=== PATIENT | female | born 1980 | race Caucasian/White ===

== ENCOUNTER 2016-06-25 20:03 | Emergency (ER) | payer BC ==
[~2016-06-25] VITALS: Ht 172.7 cm; Wt 68.2 kg
[~2016-06-25 20:03] MED LIST: MOTRIN 800800 MG/TAB PO; PERCOCET 325 MG1 TA2 PO; PRENATAL1 TA7 PO
[2016-06-25 20:06] VITALS: BP 138/78; PULSE 98; TEMP 98.8
[2016-06-25] MEDS ORDERED: PYRIDIUM 100MG100 MG PO (20:53)
[2016-06-25] MEDS ORDERED: MACROBID 1100 MG/CAP PO (20:53)
[2016-06-25 20:54] LABS: PH 6 (5-8); SQUAMOUS EPITHELIAL None Seen /hpf; URINE APPEARANCE Hazy; URINE BACTERIA Rare /hpf; URINE BILIRUBIN Negative (NEGATIVE); URINE BLOOD 3+ (NEGATIVE); URINE COLOR Amber; URINE GLUCOSE Negative (NEGATIVE); URINE KETONE Negative (NEGATIVE); URINE RBC >50 /hpf; URINE UROBILINOGEN Negative (NEGATIVE)
[2016-06-25] MEDS ORDERED: DIFLUCAN150 MG PO (21:22)
== END 2016-06-25 21:31 | disposition home or self-care (01) ==
LOC: COL.ER 20:03
PROVIDERS: Emergency Medicine
DX: N39.0 Urinary tract infection, site not specified (principal); B96.20 Unspecified Escherichia coli [E. coli] as the cause of diseases classified elsewhere; R31.0 Gross hematuria

== ENCOUNTER → 2020-03-30 | Outpatient (CLI) | payer BC ==
[~2020-03-30] MED LIST changes: +DIFLUCAN150 MG PO; +MACROBID 1100 MG/CAP PO; +PYRIDIUM 100MG100 MG PO
== END ==
LOC: MC.RAD 03-03 10:30
DX: Z12.31 Encounter for screening mammogram for malignant neoplasm of breast (principal)

== ENCOUNTER → 2020-08-27 | Outpatient (CLI) | payer BC | LOC: COL.RAD 13:51 | DX: E06.3 Autoimmune thyroiditis (principal) ==

== ENCOUNTER → 2021-05-03 | Outpatient (CLI) | payer BC | LOC: MC.RAD 12:57 | DX: Z12.31 Encounter for screening mammogram for malignant neoplasm of breast (principal) ==

== ENCOUNTER → 2022-06-08 | Outpatient (CLI) | payer BC | LOC: MC.RAD 09:24 | DX: Z12.31 Encounter for screening mammogram for malignant neoplasm of breast (principal) ==

== ENCOUNTER 2023-06-01 16:58 | Emergency (ER) | payer BC ==
[~2023-06-01] VITALS: Ht 172.7 cm; Wt 72.7 kg
[2023-06-01 17:01] VITALS: TEMP 98
[2023-06-01] MEDS ORDERED: Ketorolac 30 MG/ML VIAL IV ONE (18:45)
[2023-06-01] MEDS ORDERED: diphenhydrAMINE 50 MG/ML 1 ML VIAL IV ONE (18:45)
[2023-06-01] MEDS ORDERED: NS 1,000 ML IV ONE (18:45)
[2023-06-01 18:47] LABS: BASO % 0.1 % (0.0-2.0); GRAN # 6.6 K/mm3 (1.4-6.5); GRAN % 89.4 % (42.2-75.2); HEMOGLOBIN 13.7 g/dl (12.5-16.0); LYMPH # 0.5 K/mm3 (1.2-3.4); LYMPH % 6.3 % (20.0-51.0); MEAN CELL VOLUME 88 fl (80.0-100.0); MEAN CORPUSCULAR HEMOGLOBIN 29 pg (27-31); MEAN CORPUSCULAR HGB CONC 33 g/dl (33.0-37.0); MEAN PLATELET VOLUME 9.3 fl (7.4-10.4); MONO # 0.3 K/mm3 (0.1-0.6); MONO % 3.9 % (1.7-9.3); PLATELET COUNT 226 K/mm3 (130-400); RED BLOOD COUNT 4.66 M/mm3 (4.10-5.30)
[2023-06-01 19:09] LABS: ALBUMIN 4.2 gm/dL (3.5-5.0); BILIRUBIN,TOTAL 0.5 mg/dL (0.2-1.2); CALCIUM 9.5 mg/dL (8.4-10.2); CREATININE, serum 0.71 mg/dL (0.57-1.11); POTASSIUM 3.8 mmol/L (3.5-4.5); TOTAL PROTEIN 7.2 gm/dL (6.2-8.1)
[2023-06-01] MEDS ORDERED: FIORICET 325 MG1 TA1 PO (19:42)
[2023-06-01] MEDS ORDERED: Acetamin/Butalbital/Caffeine 325-50-40 MG TAB PO ONE (19:45)
[2023-06-01 20:14] VITALS: BP 118/78; PULSE 92
== END 2023-06-01 20:14 | disposition home or self-care (01) ==
LOC: COL.ER 16:58
PROVIDERS: Physician Assistant
DX: G43.909 Migraine, unspecified, not intractable, without status migrainosus (principal); Z79.899 Other long term (current) drug therapy
CPT/HCPCS: J1200; J1885; J2765; J7030

== ENCOUNTER → 2023-06-15 | Outpatient (CLI) | payer BC ==
[~2023-06-15] MED LIST changes: +FIORICET 325 MG1 TA1 PO
== END ==
LOC: MC.RAD 13:59
DX: Z12.31 Encounter for screening mammogram for malignant neoplasm of breast (principal)